=== PATIENT | male | born 1955 | race Caucasian/White ===

== ENCOUNTER 2016-11-02 10:27 | Inpatient (IN) | payer OTHER ==
[~2016-11-02] VITALS: Ht 180.3 cm; Wt 108.9 kg
[2016-11-02] MEDS: IPRATROPIUM/ALBUTEROL 0.5-3(2.5)MG/3ML NEB HHN SCH ×2 (04:00)
[2016-11-02 12:05] LABS: HEMATOCRIT. 28.5 % (42.0-52.0); HEMOGLOBIN. 9.5 g/dL (14.0-18.0); MEAN CORPUSCULAR HEMOGLOBIN 28.7 pg (28.0-32.0); MEAN CORPUSCULAR VOLUME 86.4 fL (80.0-94.0); MEAN PLATELET VOLUME 9.5 fl (7.4-10.4); PLATELET 206 x1000/uL (130-400)
[2016-11-02 12:14] LABS: INR 1.3; PROTHROMBIN TIME 13.8 sec (9.4-11.6)
[2016-11-02 12:22] LABS: CARBON DIOXIDE 19 mEq/L (21-32); CHLORIDE 104 mEq/L (98-107); TROPONIN I < 0.02 ng/mL (0.00-0.04)
[2016-11-02 12:55] LABS: PLATELET ESTIMATE NORMAL
[2016-11-02] MEDS ORDERED: AZITHROMYCIN 500 MG in DEXT 5% WATER 250 ML IV SCH (13:30)
[2016-11-02] MEDS ORDERED: SODIUM BICARBONATE 8.4% 1 MEQ/ML 50ML SYR IV ONE (13:30)
[2016-11-02] MEDS ORDERED: CEFTRIAXONE 1 G PREMIX 50 ML IV ONE (13:30)
[2016-11-02] MEDS ORDERED: INSULIN REGULAR (HUMULIN R) 300UNITS/3ML IV ONE (13:30)
[2016-11-02] MEDS ORDERED: DEXTROSE 50% WATER 50ML SYRINGE IV ONE (13:30)
[2016-11-02 15:00] VITALS: BP 155/73
[2016-11-02] MEDS ORDERED: IPRATROPIUM/ALBUTEROL 0.5-3(2.5)MG/3ML NEB INH PRN (15:15)
[2016-11-02] MEDS ORDERED: ONDANSETRON HCL 4MG/2ML VIAL IV PRN (15:15)
[2016-11-02] MEDS ORDERED: MAGNESIUM/ALUMINUM HYDROXIDE/SIMETHICONE 30ML UDC PO PRN (15:15)
[2016-11-02] MEDS ORDERED: DIPHENHYDRAMINE 50MG/ML VIAL IV PRN (15:15)
[2016-11-02] MEDS ORDERED: GUAIFENESIN 200MG/10ML SUGAR FREE UDC PO PRN (15:15)
[2016-11-02] MEDS ORDERED: ENOXAPARIN 40MG/0.4ML SYR SUBCUT SCH (16:00)
[2016-11-02] MEDS ORDERED: FUROSEMIDE 100MG/10ML VIAL IVP NR (16:48)
[2016-11-02] MEDS ORDERED: LIDOCAINE HCL 1% 20ML VIAL (Pyxis) INJ ONE (17:16)
[2016-11-02] MEDS ORDERED: SODIUM BICARBONATE 4% (2.4MEQ) 5ML VIAL IV ONE (17:16)
[2016-11-02] MEDS ORDERED: FURO40TA5 PO (18:40)
[2016-11-02] MEDS ORDERED: CLON0.1T14 PO (18:40)
[2016-11-02] MEDS ORDERED: LABE100T PO (18:40)
[2016-11-02] MEDS ORDERED: AMLO10TA4 PO (18:40)
[2016-11-02] MEDS ORDERED: PNEUMOCOCCAL 23-VAL P-SAC VAC 0.5 ML IM ONE (19:15)
[2016-11-02 20:00] VITALS: BP 153/86
[2016-11-02] MEDS ORDERED: HEPARIN SODIUM 1,000 UNIT/1ML VIAL IV SCH (20:00)
[2016-11-02 20:09] LABS: HEPATITIS B SURFACE AB 5.1 mIU/mL
[2016-11-02 20:20] LABS: HEPATITIS B SURFACE ANTIGEN NEGATIVE
[2016-11-02 20:48] LABS: HEPATITIS B CORE AB IGM NEGATIVE
[2016-11-02 23:57] VITALS: BP 154/80
[2016-11-03] MEDS: AMLODIPINE 10MG TABLET PO SCH ×2 (00:09→22:41)
[2016-11-03] MEDS: NITROGLYCERIN OINT 1GM/INCH UDPKT TD SCH ×4 (00:10→22:41)
[2016-11-03] MEDS: SODIUM CHLORIDE 0.9% INJ 3ML FLUSH IVF SCH ×4 (00:11→22:41)
[2016-11-03 04:00] VITALS: BP 145/65
[2016-11-03 06:49] LABS: HEMATOCRIT. 25.6 % (42.0-52.0); HEMOGLOBIN. 8.8 g/dL (14.0-18.0); MEAN CORPUSCULAR HEMOGLOBIN 29.1 pg (28.0-32.0); MEAN CORPUSCULAR VOLUME 84.5 fL (80.0-94.0); MEAN PLATELET VOLUME 9.7 fl (7.4-10.4); PLATELET 187 x1000/uL (130-400); RED BLOOD CELL COUNT 3.03 mill/uL (4.7-6.1); RED CELL DISTRIBUTION WIDTH 14.2 % (11.6-14.6)
[2016-11-03] MEDS: IPRATROPIUM/ALBUTEROL 0.5-3(2.5)MG/3ML NEB HHN SCH ×4 (08:16→20:22)
[2016-11-03 08:58] VITALS: BP 146/68
[2016-11-03] MEDS: FUROSEMIDE 80MG TABLET PO SCH ×2 (10:32→17:15)
[2016-11-03] MEDS: SEVELAMER CARBONATE 800 MG TABLET PO SCH ×2 (12:37→17:40)
[2016-11-03 12:44] VITALS: BP 136/71
[2016-11-03 13:20] LABS: PLATELET ESTIMATE NORMAL
[2016-11-03 16:04] VITALS: BP 161/87
[2016-11-03 20:00] VITALS: BP 170/76
[2016-11-04] VITALS (12 sets, daily range): BP systolic 124–169; BP diastolic 60–85
[2016-11-04] MEDS: IPRATROPIUM/ALBUTEROL 0.5-3(2.5)MG/3ML NEB HHN SCH ×3 (00:18→09:25)
[2016-11-04] MEDS: SODIUM CHLORIDE 0.9% INJ 3ML FLUSH IVF SCH ×3 (05:50→20:53)
[2016-11-04] MEDS: NITROGLYCERIN OINT 1GM/INCH UDPKT TD SCH (05:50)
[2016-11-04] MEDS: FUROSEMIDE 80MG TABLET PO SCH ×2 (06:30→16:43)
[2016-11-04 07:40] LABS: HEMATOCRIT. 26.3 % (42.0-52.0); MEAN CORPUSCULAR HEMOGLOBIN 28.8 pg (28.0-32.0); MEAN CORPUSCULAR VOLUME 84.2 fL (80.0-94.0); PLATELET 194 x1000/uL (130-400); RED BLOOD CELL COUNT 3.12 mill/uL (4.7-6.1); RED CELL DISTRIBUTION WIDTH 13.9 % (11.6-14.6)
[2016-11-04 07:58] LABS: CARBON DIOXIDE 26 mEq/L (21-32); CHLORIDE 101 mEq/L (98-107); PHOSPHORUS 7.1 mg/dL (2.5-4.9)
[2016-11-04] MEDS: SEVELAMER CARBONATE 800 MG TABLET PO SCH ×3 (08:12→16:44)
[2016-11-04] MEDS: LABETALOL HCL 300MG TABLET PO SCH ×2 (10:40→20:20)
[2016-11-04] MEDS ORDERED: LIDOCAINE HCL 1% 20ML VIAL (Pyxis) INJ ONE (13:01)
[2016-11-04] MEDS ORDERED: SODIUM BICARBONATE 4% (2.4MEQ) 5ML VIAL IV ONE (13:02)
[2016-11-04] MEDS ORDERED: CEFAZOLIN 1000MG PREMIX 50 ML IV SCH (13:15)
[2016-11-04] MEDS ORDERED: CEFAZOLIN 1000MG PREMIX 50 ML IV ONE (13:17)
[2016-11-04] MEDS ORDERED: FENTANYL CITRATE/PF 50MCG/ML 2ML VIAL ONE (13:55)
[2016-11-04] MEDS ORDERED: FENTANYL CITRATE/PF 50MCG/ML 2ML VIAL IV ONE (14:00)
[2016-11-04 15:22] LABS: CLARITY URINE CLEAR (CLEAR); COLOR URINE YELLOW (YELLOW); GLUCOSE URINE TRACE (NEGATIVE); KETONES URINE NEGATIVE (NEGATIVE); LEUKOCYTE ESTERASE URINE NEGATIVE (NEGATIVE); NITRITE URINE NEGATIVE (NEGATIVE); OCCULT BLOOD URINE 1+ (NEGATIVE); PROTEIN URINE 3+ (NEGATIVE); SPECIFIC GRAVITY URINE 1.014 (1.005-1.030); UROBILINOGEN URINE 0.2 E.U./dL (0.2-1.0)
[2016-11-04] MEDS: AMLODIPINE 10MG TABLET PO SCH (20:20)
[2016-11-04] MEDS: EPOETIN ALFA 4000UNITS/ML VIAL SUBCUT SCH (20:53)
[2016-11-04 22:56] LABS: PLATELET ESTIMATE NORMAL
[2016-11-05] VITALS: BP 144/62
[2016-11-05 04:00] VITALS: BP 143/60
[2016-11-05] MEDS: FUROSEMIDE 80MG TABLET PO SCH ×2 (06:19→16:43)
[2016-11-05] MEDS: SODIUM CHLORIDE 0.9% INJ 3ML FLUSH IVF SCH ×3 (06:20→22:10)
[2016-11-05 08:00] VITALS: BP 147/67
[2016-11-05] MEDS: SEVELAMER CARBONATE 800 MG TABLET PO SCH ×3 (08:24→16:44)
[2016-11-05] MEDS: LABETALOL HCL 300MG TABLET PO SCH ×2 (08:41→22:10)
[2016-11-05 09:12] LABS: IMMUNOGLOBULIN A 229 mg/dL (61-437); IMMUNOGLOBULIN G 675 mg/dL (700-1600); IMMUNOGLOBULIN M 127 mg/dL (20-172)
[2016-11-05 11:04] LABS: HEMOGLOBIN. 8.6 g/dL (14.0-18.0); MEAN CORPUSCULAR HEMOGLOBIN 28.8 pg (28.0-32.0); MEAN CORPUSCULAR VOLUME 83.9 fL (80.0-94.0); PLATELET 209 x1000/uL (130-400); RED BLOOD CELL COUNT 2.99 mill/uL (4.7-6.1); RED CELL DISTRIBUTION WIDTH 13.6 % (11.6-14.6)
[2016-11-05 11:42] LABS: PHOSPHORUS 7.4 mg/dL (2.5-4.9)
[2016-11-05 12:01] VITALS: BP 136/65
[2016-11-05 12:58] LABS: PLATELET ESTIMATE NORMAL
[2016-11-05] MEDS ORDERED: HEPARIN SODIUM 1,000 UNIT/1ML VIAL IV SCH (13:45)
[2016-11-05 16:00] VITALS: BP 137/74
[2016-11-05 20:00] VITALS: BP 148/67
[2016-11-05] MEDS: AMLODIPINE 10MG TABLET PO SCH (22:07)
[2016-11-05] MEDS: ACETAMINOPHEN 325MG TABLET PO PRN (22:10)
[2016-11-06] VITALS: BP 147/70
[2016-11-06 04:00] VITALS: BP 160/64
[2016-11-06] MEDS: ACETAMINOPHEN 325MG TABLET PO PRN ×2 (05:00→21:00)
[2016-11-06] MEDS: SODIUM CHLORIDE 0.9% INJ 3ML FLUSH IVF SCH ×3 (06:44→21:00)
[2016-11-06] MEDS: FUROSEMIDE 80MG TABLET PO SCH ×2 (07:15→17:49)
[2016-11-06 07:21] LABS: HEMATOCRIT. 25.3 % (42.0-52.0); HEMOGLOBIN. 8.4 g/dL (14.0-18.0); MEAN CORPUSCULAR HEMOGLOBIN 28.4 pg (28.0-32.0); MEAN CORPUSCULAR VOLUME 85.3 fL (80.0-94.0); MEAN PLATELET VOLUME 8.9 fl (7.4-10.4); PLATELET 209 x1000/uL (130-400); RED BLOOD CELL COUNT 2.96 mill/uL (4.7-6.1); RED CELL DISTRIBUTION WIDTH 13.5 % (11.6-14.6)
[2016-11-06 08:00] VITALS: BP 141/63
[2016-11-06 08:09] LABS: PHOSPHORUS 5.6 mg/dL (2.5-4.9)
[2016-11-06] MEDS: SEVELAMER CARBONATE 800 MG TABLET PO SCH ×3 (08:37→17:09)
[2016-11-06 10:20] LABS: PLATELET ESTIMATE NORMAL
[2016-11-06 12:00] VITALS: BP 157/75
[2016-11-06] MEDS ORDERED: LOSARTAN POTASSIUM 50 MG TABLET PO SCH (12:00)
[2016-11-06] MEDS ORDERED: LEVOFLOXACIN 250MG TABLET PO ONE (12:00)
[2016-11-06] MEDS ORDERED: LEVOFLOXACIN 250MG TABLET PO NR (12:15)
[2016-11-06 16:13] VITALS: BP 156/70
[2016-11-06 20:00] VITALS: BP 153/71
[2016-11-06] MEDS: AMLODIPINE 10MG TABLET PO SCH (20:59)
[2016-11-06] MEDS: LABETALOL HCL 200MG TABLET PO SCH (21:00)
[2016-11-07] VITALS: BP 133/66
[2016-11-07 04:35] VITALS: BP 143/63
[2016-11-07 05:51] LABS: HEMATOCRIT. 25.4 % (42.0-52.0); HEMOGLOBIN. 8.6 g/dL (14.0-18.0); MEAN CORPUSCULAR HEMOGLOBIN 28.7 pg (28.0-32.0); MEAN CORPUSCULAR VOLUME 84.7 fL (80.0-94.0); MEAN PLATELET VOLUME 8.7 fl (7.4-10.4); PLATELET 231 x1000/uL (130-400); RED BLOOD CELL COUNT 2.99 mill/uL (4.7-6.1); RED CELL DISTRIBUTION WIDTH 13.3 % (11.6-14.6)
[2016-11-07 06:13] LABS: A/G RATIO 0.6 (0.7-1.7); ALBUMIN 1.7 g/dL (2.9-4.4); ALPHA-1-GLOBULIN 0.4 g/dL (0.0-0.4); ALPHA-2-GLOBULIN 0.9 g/dL (0.4-1.0); BETA GLOBULIN 0.7 g/dL (0.7-1.3); GAMMA GLOBULINS 0.9 g/dL (0.4-1.8); M-SPIKE Not Observed g/dL (Not Observed); TOTAL PROTEIN SERUM 4.7 g/dL (6.0-8.5)
[2016-11-07] MEDS: SODIUM CHLORIDE 0.9% INJ 3ML FLUSH IVF SCH ×3 (06:18→21:26)
[2016-11-07] MEDS: FUROSEMIDE 80MG TABLET PO SCH ×2 (06:18→17:09)
[2016-11-07 06:33] LABS: PHOSPHORUS 4.4 mg/dL (2.5-4.9)
[2016-11-07 07:42] VITALS: BP 153/68
[2016-11-07] MEDS: LABETALOL HCL 200MG TABLET PO SCH ×2 (08:24→22:22)
[2016-11-07] MEDS: SEVELAMER CARBONATE 800 MG TABLET PO SCH ×3 (08:24→17:09)
[2016-11-07] MEDS: LOSARTAN POTASSIUM 50 MG TABLET PO SCH (08:28)
[2016-11-07] MEDS: LEVOFLOXACIN 500MG TABLET PO SCH (10:35)
[2016-11-07 12:00] VITALS: BP 134/65
[2016-11-07] MEDS: SILDENAFIL CITRATE 20MG TABLET PO SCH ×2 (13:12→21:25)
[2016-11-07 13:43] LABS: PLATELET ESTIMATE NORMAL
[2016-11-07 15:12] LABS: ANA IFA Negative (.)
[2016-11-07 15:52] VITALS: BP 145/67
[2016-11-07 20:00] VITALS: BP 139/59
[2016-11-07] MEDS: AMLODIPINE 5MG TABLET PO SCH (21:25)
[2016-11-07] MEDS: EPOETIN ALFA 4000UNITS/ML VIAL SUBCUT SCH (21:26)
[2016-11-07] MEDS: ACETAMINOPHEN 325MG TABLET PO PRN (22:46)
[2016-11-08] VITALS: BP 148/76
[2016-11-08 04:00] VITALS: BP 150/65
[2016-11-08] MEDS: SILDENAFIL CITRATE 20MG TABLET PO SCH ×3 (05:41→22:00)
[2016-11-08] MEDS: SODIUM CHLORIDE 0.9% INJ 3ML FLUSH IVF SCH ×3 (05:42→22:15)
[2016-11-08] MEDS: FUROSEMIDE 80MG TABLET PO SCH ×2 (06:20→17:43)
[2016-11-08 07:04] LABS: HEMOGLOBIN. 9.3 g/dL (14.0-18.0); MEAN CORPUSCULAR HEMOGLOBIN 28.4 pg (28.0-32.0); MEAN CORPUSCULAR VOLUME 85.2 fL (80.0-94.0); MEAN PLATELET VOLUME 8.9 fl (7.4-10.4); PLATELET 288 x1000/uL (130-400); RED BLOOD CELL COUNT 3.29 mill/uL (4.7-6.1); RED CELL DISTRIBUTION WIDTH 13.2 % (11.6-14.6)
[2016-11-08 08:00] VITALS: BP 150/63
[2016-11-08 08:19] LABS: PHOSPHORUS 4.6 mg/dL (2.5-4.9)
[2016-11-08] MEDS: AMLODIPINE 5MG TABLET PO SCH ×2 (08:36→21:00)
[2016-11-08] MEDS: SEVELAMER CARBONATE 800 MG TABLET PO SCH ×3 (08:36→17:42)
[2016-11-08] MEDS: LOSARTAN POTASSIUM 50 MG TABLET PO SCH (08:37)
[2016-11-08] MEDS: LABETALOL HCL 200MG TABLET PO SCH ×2 (08:37→21:00)
[2016-11-08 12:00] VITALS: BP 143/61
[2016-11-08 12:00] LABS: ANTI-MYELOPEROXIDASE AB < 9.0 U/mL (0.0-9.0); ANTI-PROTEINASE 3 ABS < 3.5 U/mL (0.0-3.5); ATYPICAL P-ANCA <1:20 titer (Neg:<1:20); CYTOPLASMIC C-ANCA <1:20 titer (Neg:<1:20); PERINUCLEAR P-ANCA <1:20 titer (Neg:<1:20)
[2016-11-08] MEDS: HYDRALAZINE HCL 50MG TABLET PO SCH ×2 (12:48→21:00)
[2016-11-08 16:00] VITALS: BP 142/62
[2016-11-08 16:39] LABS: PLATELET ESTIMATE NORMAL
[2016-11-08] MEDS: CEFEPIME 1,000 MG in DEXTROSE 5% WATER 50 ML IV SCH (17:45)
[2016-11-08 20:00] VITALS: BP 174/64
[2016-11-09] VITALS (7 sets, daily range): BP systolic 126–156; BP diastolic 61–72
[2016-11-09] MEDS: ACETAMINOPHEN 325MG TABLET PO PRN ×2 (01:02→08:26)
[2016-11-09] MEDS: SILDENAFIL CITRATE 20MG TABLET PO SCH ×3 (05:32→22:25)
[2016-11-09] MEDS: SODIUM CHLORIDE 0.9% INJ 3ML FLUSH IVF SCH ×3 (05:33→22:26)
[2016-11-09] MEDS: FUROSEMIDE 80MG TABLET PO SCH ×2 (06:06→17:20)
[2016-11-09 07:45] LABS: HEMATOCRIT. 26.3 % (42.0-52.0); HEMOGLOBIN. 8.8 g/dL (14.0-18.0); MEAN CORPUSCULAR HEMOGLOBIN 28.5 pg (28.0-32.0); MEAN CORPUSCULAR VOLUME 84.7 fL (80.0-94.0); PLATELET 257 x1000/uL (130-400); RED CELL DISTRIBUTION WIDTH 13.5 % (11.6-14.6)
[2016-11-09 08:11] LABS: PHOSPHORUS 3.8 mg/dL (2.5-4.9)
[2016-11-09 08:22] LABS: GLOMERULAR BASEMENT MEMB AB 3 units (0-20)
[2016-11-09] MEDS: HYDRALAZINE HCL 50MG TABLET PO SCH ×2 (08:23→20:57)
[2016-11-09] MEDS: LOSARTAN POTASSIUM 50 MG TABLET PO SCH (08:23)
[2016-11-09] MEDS: LABETALOL HCL 200MG TABLET PO SCH ×2 (08:23→20:57)
[2016-11-09] MEDS: SEVELAMER CARBONATE 800 MG TABLET PO SCH ×3 (08:23→17:20)
[2016-11-09] MEDS: AMLODIPINE 5MG TABLET PO SCH ×2 (08:23→20:57)
[2016-11-09] MEDS: POLYETHYLENE GLYCOL 3350 (17GM) 1 DOSE PACK PO SCH (08:54)
[2016-11-09] MEDS ORDERED: VANCOMYCIN 1 G PREMIX 200 ML IV SCH (10:00)
[2016-11-09 10:02] LABS: INR 1.1; PARTIAL THROMBOPLASTIN TIME 30.6 sec (23.4-31.0); PROTHROMBIN TIME 11.2 sec (9.4-11.6)
[2016-11-09] MEDS: LEVOFLOXACIN 500MG TABLET PO SCH (12:09)
[2016-11-09] MEDS ORDERED: SODIUM BICARBONATE 4% (2.4MEQ) 5ML VIAL IV ONE (13:34)
[2016-11-09] MEDS ORDERED: DIATR MEGLU/DIATRIZOATE SOLN 30ML PO SCH (15:45)
[2016-11-09 16:23] LABS: PLATELET ESTIMATE NORMAL
[2016-11-09] MEDS ORDERED: DIATR MEGLU/DIATRIZOATE SOLN 30ML PO NR ×2 (16:30→17:15)
[2016-11-09] MEDS: CEFEPIME 1,000 MG in DEXTROSE 5% WATER 50 ML IV SCH (17:20)
[2016-11-09] MEDS: EPOETIN ALFA 4000UNITS/ML VIAL SUBCUT SCH (20:57)
[2016-11-09] MEDS: DOXYCYCLINE HYCLATE 100MG CAPSULE PO SCH (20:59)
[2016-11-10] VITALS: BP 149/86
[2016-11-10 04:00] VITALS: BP 145/69
[2016-11-10] MEDS: SODIUM CHLORIDE 0.9% INJ 3ML FLUSH IVF SCH ×2 (06:57→13:33)
[2016-11-10] MEDS: SILDENAFIL CITRATE 20MG TABLET PO SCH ×2 (06:57→13:33)
[2016-11-10 07:06] LABS: HEMATOCRIT. 23.5 % (42.0-52.0); MEAN CORPUSCULAR HEMOGLOBIN 28.7 pg (28.0-32.0); MEAN CORPUSCULAR VOLUME 84.4 fL (80.0-94.0); MEAN PLATELET VOLUME 8.9 fl (7.4-10.4); PLATELET 260 x1000/uL (130-400); RED BLOOD CELL COUNT 2.79 mill/uL (4.7-6.1); RED CELL DISTRIBUTION WIDTH 13.6 % (11.6-14.6)
[2016-11-10 07:38] VITALS: BP 141/64
[2016-11-10] MEDS: SEVELAMER CARBONATE 800 MG TABLET PO SCH ×2 (08:29→13:33)
[2016-11-10] MEDS: LOSARTAN POTASSIUM 50 MG TABLET PO SCH (08:29)
[2016-11-10] MEDS: FUROSEMIDE 80MG TABLET PO SCH (08:29)
[2016-11-10] MEDS: DOXYCYCLINE HYCLATE 100MG CAPSULE PO SCH (08:30)
[2016-11-10] MEDS: AMLODIPINE 5MG TABLET PO SCH (08:30)
[2016-11-10] MEDS: POLYETHYLENE GLYCOL 3350 (17GM) 1 DOSE PACK PO SCH ×2 (08:30→08:34)
[2016-11-10] MEDS: HYDRALAZINE HCL 50MG TABLET PO SCH (08:30)
[2016-11-10] MEDS: LABETALOL HCL 200MG TABLET PO SCH (08:30)
[2016-11-10 09:13] LABS: PHOSPHORUS 3.9 mg/dL (2.5-4.9)
[2016-11-10] MEDS ORDERED: AMLODIPINE 10MG TABLET PO SCH (09:30)
[2016-11-10 12:00] VITALS: BP 138/63
[2016-11-10 14:30] VITALS: BP 138/63
[2016-11-10 16:36] LABS: PLATELET ESTIMATE NORMAL
[2016-11-10 17:12] LABS: QFT MITOGEN VALUE 0.17 IU/mL (.); QFT TB AG MINUS NIL VALUE <0.00 IU/mL (.); QFT TB AG VALUE 0.12 IU/mL (.); QFT TB GOLD Indeterminate (Negative)
[2016-11-10] MEDS ORDERED: EPOETIN ALFA 4000UNITS/ML VIAL SUBCUT SCH (21:00)
[2016-11-11] MEDS ORDERED: FUROSEMIDE 80MG TABLET PO SCH (09:00)
== END 2016-11-10 16:00 | disposition home or self-care (01) | DRG 720 ==
LOC: ER 12:41 → 8WST 14:02 → EDBEDREQ 14:05 → ENRESERV 14:09
PROVIDERS: ADMIT Internal Medicine; ATTEND Internal Medicine
PROC: 5A1D60Z (ICD-10-PCS; principal; 2016-11-02)
PROC: 02HV33Z Insertion of Infusion Device into Superior Vena Cava, Percutaneous Approach (ICD-10-PCS; 2016-11-02)
PROC: B548ZZA Ultrasonography of Superior Vena Cava, Guidance (ICD-10-PCS; 2016-11-02)
PROC: 02HV33Z Insertion of Infusion Device into Superior Vena Cava, Percutaneous Approach (ICD-10-PCS; 2016-11-04)
PROC: B5181ZA Fluoroscopy of Superior Vena Cava using Low Osmolar Contrast, Guidance (ICD-10-PCS; 2016-11-04)
PROC: 0W993ZZ Drainage of Right Pleural Cavity, Percutaneous Approach (ICD-10-PCS; 2016-11-09)
DX: A41.9 Sepsis, unspecified organism (principal); J96.00 Acute respiratory failure, unspecified whether with hypoxia or hypercapnia; I13.2 Hypertensive heart and chronic kidney disease with heart failure and with stage 5 chronic kidney disease, or end stage renal disease; N17.9 Acute kidney failure, unspecified; E43 Unspecified severe protein-calorie malnutrition; E87.2 Acidosis; J90 Pleural effusion, not elsewhere classified; N18.6 End stage renal disease; I27.2 Other secondary pulmonary hypertension; E87.5 Hyperkalemia; I50.9 Heart failure, unspecified; N04.9 Nephrotic syndrome with unspecified morphologic changes; D63.1 Anemia in chronic kidney disease; T46.5X5A Adverse effect of other antihypertensive drugs, initial encounter; M71.22 Synovial cyst of popliteal space [Baker], left knee; R73.03 Prediabetes; E66.9 Obesity, unspecified; R00.1 Bradycardia, unspecified; E88.09 Other disorders of plasma-protein metabolism, not elsewhere classified; Z83.3 Family history of diabetes mellitus; E83.39 Other disorders of phosphorus metabolism; R59.0 Localized enlarged lymph nodes; Z87.440 Personal history of urinary (tract) infections; Z99.2 Dependence on renal dialysis; Z68.33 Body mass index [BMI] 33.0-33.9, adult; Z82.49 Family history of ischemic heart disease and other diseases of the circulatory system; Y92.89 Other specified places as the place of occurrence of the external cause
CPT/HCPCS: 32555; 36415; 36556; 36558; 36589; 71010; 71250; 74176; 76700; 76937; 77001; 78582; 80048; 80053; 80076; 81001; 82150; 82330; 82550; 82570; 82784; 82945; 82962; 83036; 83520; 83540; 83550; 83605; 83615; 83690; 83735; 83880; 84100; 84155; 84156; 84157; 84165; 84443; 84484; 85025; 85610; 85651; 85730; 86140; 86256; 86334; 86480; 86635; 86703; 86705; 86706; 86803; 86850; 86900; 87040; 87070; 87086; 87205; 87340; 87899; 88108; 88312; 89050; 90732; 93005; 93306; 93970; 94640; 94664; 96374; 96375; 99291; A9558; C1750; C1752; J0456; J0690; J0692; J0696; J0885; J1642; J1644; J1650; J1815; J2405; J3010; J3370; J3490; J7030; J7050; J7060; J7620; Q9963

== ENCOUNTER 2016-11-24 15:52 | Inpatient (IN) | payer OTHER ==
[~2016-11-24] VITALS: Ht 180.3 cm; Wt 95.3 kg
[~2016-11-24 15:52] MED LIST: AMLO10TA4 PO; CLON0.1T14 PO; FURO40TA5 PO; LABE100T PO
[2016-11-24 18:52] LABS: HEMATOCRIT. 21.3 % (42.0-52.0); HEMOGLOBIN. 7.3 g/dL (14.0-18.0); MEAN CORPUSCULAR HEMOGLOBIN 28.5 pg (28.0-32.0); MEAN CORPUSCULAR VOLUME 83.8 fL (80.0-94.0); RED BLOOD CELL COUNT 2.55 mill/uL (4.7-6.1); RED CELL DISTRIBUTION WIDTH 13.6 % (11.6-14.6)
[2016-11-24 18:59] LABS: INR 1.1; PARTIAL THROMBOPLASTIN TIME 29.9 sec (23.4-31.0); PROTHROMBIN TIME 11.1 sec (9.4-11.6)
[2016-11-24] MEDS ORDERED: IPRATROPIUM/ALBUTEROL 0.5-3(2.5)MG/3ML NEB INH PRN (21:00)
[2016-11-24] MEDS ORDERED: ONDANSETRON HCL 4MG/2ML VIAL IV PRN (21:00)
[2016-11-24] MEDS ORDERED: MAGNESIUM/ALUMINUM HYDROXIDE/SIMETHICONE 30ML UDC PO PRN (21:00)
[2016-11-24] MEDS ORDERED: ACETAMINOPHEN 325MG TABLET PO PRN (21:00)
[2016-11-24 21:50] LABS: CLARITY URINE CLEAR (CLEAR); COLOR URINE YELLOW (YELLOW); GLUCOSE URINE 1+ (NEGATIVE); KETONES URINE NEGATIVE (NEGATIVE); LEUKOCYTE ESTERASE URINE NEGATIVE (NEGATIVE); NITRITE URINE NEGATIVE (NEGATIVE); OCCULT BLOOD URINE NEGATIVE (NEGATIVE); PH URINE 8.5 (4.5-8.0); PROTEIN URINE 3+ (NEGATIVE); SPECIFIC GRAVITY URINE 1.012 (1.005-1.030); UROBILINOGEN URINE 0.2 E.U./dL (0.2-1.0)
[2016-11-24 22:01] LABS: *AMPHETAMINES SCREEN URINE NEGATIVE (NEGATIVE); *BARBITURATES SCREEN URINE NEGATIVE (NEGATIVE); *BENZODIAZEPINES SCREEN URINE NEGATIVE (NEGATIVE); *COCAINE SCREEN URINE NEGATIVE (NEGATIVE); CANNABINOID URINE SCREEN NEGATIVE (NEGATIVE); METHADONE URINE SCREEN NEGATIVE (NEGATIVE); OPIATES URINE SCREEN NEGATIVE (NEGATIVE); PHENCYCLIDINE URINE SCREEN NEGATIVE (NEGATIVE)
[2016-11-24 22:55] VITALS: BP 161/74
[2016-11-25] VITALS (10 sets, daily range): BP systolic 143–171; BP diastolic 67–78
[2016-11-25] MEDS: FUROSEMIDE 40MG/4ML VIAL IVP SCH ×2 (00:52→08:59)
[2016-11-25 02:00] LABS: CARBON DIOXIDE 32 mEq/L (21-32); CHLORIDE 98 mEq/L (98-107); CREATINE KINASE 163 IU/L (39-308); CREATINE KINASE MB FRACTION 4.4 ng/mL (0.5-3.6); TOTAL IRON BINDING CAPACITY 211 ug/dL (250-450); TROPONIN I < 0.02 ng/mL (0.00-0.04)
[2016-11-25] MEDS ORDERED: EPOETIN ALFA 4000UNITS/ML VIAL SUBCUT SCH (02:00)
[2016-11-25 05:36] LABS: BASOPHILS % 1.2 % (0.0-2.0); EOSINOPHILS % 3.2 % (0.0-5.0); HEMATOCRIT. 22.7 % (42.0-52.0); HEMOGLOBIN. 7.8 g/dL (14.0-18.0); MEAN CORPUSCULAR HEMOGLOBIN 27.7 pg (28.0-32.0); MEAN CORPUSCULAR VOLUME 80.5 fL (80.0-94.0); MEAN PLATELET VOLUME 8.8 fl (7.4-10.4); MONOCYTES % 8.8 % (2.0-8.0); NEUTROPHILS % 71.8 % (40.0-76.0); PLATELET 297 x1000/uL (130-400); RED BLOOD CELL COUNT 2.82 mill/uL (4.7-6.1)
[2016-11-25] MEDS ORDERED: AMLO10TA4 PO (06:42)
[2016-11-25] MEDS ORDERED: FURO-151 PO ×2 (06:52)
[2016-11-25] MEDS ORDERED: AMLO2.5T2 PO (06:52)
[2016-11-25] MEDS ORDERED: CLON0.1T14 PO (06:52)
[2016-11-25] MEDS: CLONIDINE 0.1MG TABLET PO SCH ×2 (09:00→19:51)
[2016-11-25] MEDS: AMLODIPINE 10MG TABLET PO SCH (09:00)
[2016-11-25 09:40] LABS: CARBON DIOXIDE 31 mEq/L (21-32); CHLORIDE 99 mEq/L (98-107); CREATINE KINASE 127 IU/L (39-308); HDL CHOLESTEROL 48 mg/dL (40-59); LDL CHOLESTEROL 58 mg/dL (5-100)
[2016-11-25 09:42] LABS: CREATINE KINASE MB FRACTION 3.6 ng/mL (0.5-3.6); TROPONIN I < 0.02 ng/mL (0.00-0.04)
[2016-11-26 04:00] VITALS: BP 158/73
[2016-11-26 06:22] LABS: EOSINOPHILS % 2.6 % (0.0-5.0); HEMATOCRIT 23.6 % (42.0-52.0); HEMATOCRIT. 23.6 % (42.0-52.0); HEMOGLOBIN 8.2 g/dL (14.0-18.0); HEMOGLOBIN. 8.2 g/dL (14.0-18.0); LYMPHOCYTES % 15.5 % (20.0-50.0); MEAN CORPUSCULAR HEMOGLOBIN 28.1 pg (28.0-32.0); MEAN PLATELET VOLUME 8.9 fl (7.4-10.4); MONOCYTES % 9.5 % (2.0-8.0); NEUTROPHILS % 71.4 % (40.0-76.0); PLATELET 279 x1000/uL (130-400); RED BLOOD CELL COUNT 2.91 mill/uL (4.7-6.1); RED CELL DISTRIBUTION WIDTH 15.3 % (11.6-14.6)
[2016-11-26 08:00] VITALS: BP_SYST 154; BP_SYST 168; BP_DIAS 68; BP_DIAS 73
[2016-11-26] MEDS: FUROSEMIDE 40MG/4ML VIAL IVP SCH (08:39)
[2016-11-26] MEDS: CLONIDINE 0.1MG TABLET PO SCH ×2 (08:40→20:18)
[2016-11-26] MEDS: AMLODIPINE 10MG TABLET PO SCH (08:40)
[2016-11-26 12:00] VITALS: BP 154/73
[2016-11-26 16:00] VITALS: BP 167/77
[2016-11-26] MEDS: CLONIDINE 0.1MG TABLET PO PRN (17:49)
[2016-11-26 19:51] VITALS: BP 157/78
[2016-11-26] MEDS ORDERED: EPOETIN ALFA 4000UNITS/ML VIAL SUBCUT NR (23:00)
[2016-11-27] VITALS: BP 154/71
[2016-11-27 04:00] VITALS: BP 149/69
[2016-11-27 07:00] LABS: EOSINOPHILS % 2.1 % (0.0-5.0); HEMATOCRIT 25.5 % (42.0-52.0); HEMATOCRIT. 25.5 % (42.0-52.0); HEMOGLOBIN 8.9 g/dL (14.0-18.0); HEMOGLOBIN. 8.9 g/dL (14.0-18.0); LYMPHOCYTES % 13.2 % (20.0-50.0); MEAN CORPUSCULAR HEMOGLOBIN 28.4 pg (28.0-32.0); MEAN CORPUSCULAR VOLUME 81.3 fL (80.0-94.0); MEAN PLATELET VOLUME 8.6 fl (7.4-10.4); MONOCYTES % 6.9 % (2.0-8.0); NEUTROPHILS % 76.8 % (40.0-76.0); PLATELET 283 x1000/uL (130-400); RED BLOOD CELL COUNT 3.14 mill/uL (4.7-6.1); RED CELL DISTRIBUTION WIDTH 15.1 % (11.6-14.6)
[2016-11-27 07:02] LABS: CARBON DIOXIDE 28 mEq/L (21-32); CHLORIDE 104 mEq/L (98-107)
[2016-11-27 08:00] VITALS: BP 176/77
[2016-11-27] MEDS: AMLODIPINE 10MG TABLET PO SCH (09:11)
[2016-11-27] MEDS: CLONIDINE 0.1MG TABLET PO SCH ×2 (09:11→20:14)
[2016-11-27] MEDS: FUROSEMIDE 40MG/4ML VIAL IVP SCH (09:12)
[2016-11-27 12:00] VITALS: BP 155/74
[2016-11-27 16:00] VITALS: BP 159/77
[2016-11-27 20:00] VITALS: BP 168/71
[2016-11-28] VITALS: BP 151/73
[2016-11-28 04:00] VITALS: BP 157/68
[2016-11-28 06:46] LABS: BASOPHILS % 1.3 % (0.0-2.0); EOSINOPHILS % 2.6 % (0.0-5.0); HEMATOCRIT. 27.7 % (42.0-52.0); HEMOGLOBIN. 9.5 g/dL (14.0-18.0); LYMPHOCYTES % 14.2 % (20.0-50.0); MEAN CORPUSCULAR VOLUME 81.8 fL (80.0-94.0); MEAN PLATELET VOLUME 8.4 fl (7.4-10.4); MONOCYTES % 6.7 % (2.0-8.0); NEUTROPHILS % 75.2 % (40.0-76.0); PLATELET 286 x1000/uL (130-400); RED BLOOD CELL COUNT 3.39 mill/uL (4.7-6.1); RED CELL DISTRIBUTION WIDTH 15.2 % (11.6-14.6)
[2016-11-28 08:01] VITALS: BP 172/86
[2016-11-28] MEDS: FUROSEMIDE 40MG/4ML VIAL IVP SCH (08:48)
[2016-11-28] MEDS: AMLODIPINE 10MG TABLET PO SCH (08:49)
[2016-11-28] MEDS: CLONIDINE 0.1MG TABLET PO SCH (08:49)
[2016-11-28 11:59] VITALS: BP 177/85
[2016-11-28 14:11] VITALS: BP 177/85
[2016-11-28] MEDS: CLONIDINE 0.1MG TABLET PO PRN (14:39)
[2016-11-29 13:12] LABS: A/G RATIO 0.8 (0.7-1.7); ALBUMIN 2.3 g/dL (2.9-4.4); ALPHA-1-GLOBULIN 0.3 g/dL (0.0-0.4); ALPHA-2-GLOBULIN 0.9 g/dL (0.4-1.0); BETA GLOBULIN 0.7 g/dL (0.7-1.3); GLOBULIN TOTAL 2.9 g/dL (2.2-3.9); M-SPIKE Not Observed g/dL (Not Observed); TOTAL PROTEIN SERUM 5.2 g/dL (6.0-8.5)
== END 2016-11-28 14:50 | disposition home or self-care (01) | DRG 663 ==
LOC: ER 16:55 → EDBEDREQTM 19:15 → EDBEDREQ 19:15 → ENRESERV 21:38 → 6WST 22:58
PROVIDERS: ADMIT Internal Medicine; ATTEND Internal Medicine
PROC: 30233N1 Transfusion of Nonautologous Red Blood Cells into Peripheral Vein, Percutaneous Approach (ICD-10-PCS; principal; 2016-11-24)
DX: D64.9 Anemia, unspecified (principal); I13.2 Hypertensive heart and chronic kidney disease with heart failure and with stage 5 chronic kidney disease, or end stage renal disease; N18.6 End stage renal disease; R18.8 Other ascites; E11.22 Type 2 diabetes mellitus with diabetic chronic kidney disease; E88.09 Other disorders of plasma-protein metabolism, not elsewhere classified; E11.65 Type 2 diabetes mellitus with hyperglycemia; B35.1 Tinea unguium; D72.829 Elevated white blood cell count, unspecified; I50.9 Heart failure, unspecified; N40.0 Benign prostatic hyperplasia without lower urinary tract symptoms; L08.9 Local infection of the skin and subcutaneous tissue, unspecified; M71.20 Synovial cyst of popliteal space [Baker], unspecified knee; N39.0 Urinary tract infection, site not specified; Z79.899 Other long term (current) drug therapy; Z99.2 Dependence on renal dialysis
CPT/HCPCS: 36415; 71010; 76770; 80048; 80053; 80061; 80305; 81001; 82270; 82550; 82553; 82962; 83540; 83550; 83735; 84153; 84155; 84165; 84484; 85025; 85027; 85044; 85610; 85730; 86850; 86900; 86920; 87040; 93005; 93306; 93970; 99285; J0885; J1940; J7050; P9016

== ENCOUNTER 2016-12-08 20:44 | Inpatient (IN) | payer OTHER ==
[~2016-12-08] VITALS: Ht 180.3 cm; Wt 93.0 kg
[~2016-12-08 20:44] MED LIST changes: +AMLO2.5T2 PO; +FURO-151 PO
[2016-12-08 23:57] LABS: BASOPHILS % 0.8 % (0.0-2.0); EOSINOPHILS % 3.2 % (0.0-5.0); HEMATOCRIT. 25.6 % (42.0-52.0); HEMOGLOBIN. 8.9 g/dL (14.0-18.0); LYMPHOCYTES % 12.8 % (20.0-50.0); MEAN CORPUSCULAR HEMOGLOBIN 28.8 pg (28.0-32.0); MEAN PLATELET VOLUME 9.3 fl (7.4-10.4); MONOCYTES % 6.7 % (2.0-8.0); NEUTROPHILS % 76.5 % (40.0-76.0); PLATELET 145 x1000/uL (130-400); RED BLOOD CELL COUNT 3.08 mill/uL (4.7-6.1); RED CELL DISTRIBUTION WIDTH 16.4 % (11.6-14.6)
[2016-12-09 11:30] VITALS: BP 147/66
[2016-12-09 11:45] VITALS: BP 146/66
[2016-12-09] MEDS ORDERED: ROC50 PO (11:51)
[2016-12-09] MEDS ORDERED: LABE100T PO (11:51)
[2016-12-09] MEDS ORDERED: AMLO10TA80 PO (11:51)
[2016-12-09] MEDS ORDERED: SEVE800T8 PO (11:51)
[2016-12-09] MEDS ORDERED: HYDR-4134 PO (11:51)
[2016-12-09] MEDS ORDERED: GUAIFENESIN 200MG/10ML SUGAR FREE UDC PO PRN (12:15)
[2016-12-09] MEDS ORDERED: MAGNESIUM/ALUMINUM HYDROXIDE/SIMETHICONE 30ML UDC PO PRN (12:15)
[2016-12-09] MEDS ORDERED: ONDANSETRON HCL 4MG/2ML VIAL IV PRN (12:15)
[2016-12-09] MEDS ORDERED: ZOLPIDEM TARTRATE 5MG TABLET PO PRN (12:15)
[2016-12-09] MEDS ORDERED: IPRATROPIUM/ALBUTEROL 0.5-3(2.5)MG/3ML NEB INH PRN (12:15)
[2016-12-09] MEDS ORDERED: TRAMADOL 50MG TABLET PO PRN (12:15)
[2016-12-09] MEDS ORDERED: ACETAMINOPHEN 325MG TABLET PO PRN (12:15)
[2016-12-09] MEDS ORDERED: DIPHENHYDRAMINE 50MG/ML VIAL IV PRN (12:15)
[2016-12-09] MEDS ORDERED: CLONIDINE 0.1MG TABLET PO PRN (12:15)
[2016-12-09] MEDS ORDERED: AMLODIPINE 10MG TABLET PO SCH (12:15)
[2016-12-09] MEDS ORDERED: NA PHOS,M-B/NA PHOS,DI-BA ENEMA 118ML PR PRN (12:15)
[2016-12-09] MEDS ORDERED: DOCUSATE SODIUM 100MG CAPSULE PO PRN (12:15)
[2016-12-09] MEDS ORDERED: LORAZEPAM 2MG/ML CPJ IV PRN (12:15)
[2016-12-09] MEDS ORDERED: ASPIRIN 325MG EC TABLET PO SCH (12:15)
[2016-12-09] MEDS ORDERED: ENOXAPARIN 30MG/0.3ML SYR SUBCUT SCH (12:16)
[2016-12-09] MEDS: SEVELAMER CARBONATE 800 MG TABLET PO SCH ×2 (13:04→18:11)
[2016-12-09] MEDS ORDERED: HYDRALAZINE HCL 50MG TABLET PO SCH (14:00)
[2016-12-09 16:00] VITALS: BP 150/70
[2016-12-09 16:43] VITALS: BP 150/70
[2016-12-09 18:08] LABS: CREATINE KINASE 206 IU/L (39-308); TROPONIN I < 0.02 ng/mL (0.00-0.04)
[2016-12-09] MEDS ORDERED: ASCORBIC ACID 500 MG TABLET PO SCH (21:00)
[2016-12-10] MEDS ORDERED: FOLIC ACID/VITAMIN B COMP W-C TABLET PO SCH (09:00)
[2016-12-12] MEDS ORDERED: DESMOPRESSIN ACETATE IVPB 20 MCG in SODIUM CHLORIDE 0.9% 50 ML IV NR (09:00)
[2016-12-12 09:12] LABS: A/G RATIO 0.9 (0.7-1.7); ALBUMIN 2.6 g/dL (2.9-4.4); ALPHA-1-GLOBULIN 0.3 g/dL (0.0-0.4); ALPHA-2-GLOBULIN 0.8 g/dL (0.4-1.0); BETA GLOBULIN 0.6 g/dL (0.7-1.3); GLOBULIN TOTAL 2.8 g/dL (2.2-3.9); M-SPIKE Not Observed g/dL (Not Observed); TOTAL PROTEIN SERUM 5.4 g/dL (6.0-8.5)
== END 2016-12-09 19:00 | disposition home or self-care (01) | DRG 194 ==
LOC: ER 21:27 → 6WST 12-09 01:14 → ENRESERV 12-09 10:08
PROVIDERS: ADMIT Internal Medicine; ATTEND Internal Medicine
DX: I13.2 Hypertensive heart and chronic kidney disease with heart failure and with stage 5 chronic kidney disease, or end stage renal disease (principal); N18.6 End stage renal disease; E44.0 Moderate protein-calorie malnutrition; E83.51 Hypocalcemia; N18.5 Chronic kidney disease, stage 5; I50.9 Heart failure, unspecified; Z79.899 Other long term (current) drug therapy
CPT/HCPCS: 36415; 71010; 80048; 80061; 82550; 82553; 83036; 84155; 84165; 84484; 85025; 93005; 99285

== ENCOUNTER 2016-12-13 14:04 | Inpatient (IN) | payer OTHER ==
[~2016-12-13] VITALS: Ht 182.9 cm; Wt 90.3 kg
[~2016-12-13 14:04] MED LIST changes: -AMLO10TA4 PO; +AMLO10TA80 PO; -AMLO2.5T2 PO; -CLON0.1T14 PO; -FURO-151 PO; -FURO40TA5 PO; +HYDR-4134 PO; +ROC50 PO; +SEVE800T8 PO
[2016-12-13 17:43] LABS: BASOPHILS % 1.5 % (0.0-2.0); EOSINOPHILS % 3.2 % (0.0-5.0); HEMATOCRIT. 27.5 % (42.0-52.0); HEMOGLOBIN. 9.4 g/dL (14.0-18.0); MEAN CORPUSCULAR HEMOGLOBIN 28.6 pg (28.0-32.0); MEAN CORPUSCULAR VOLUME 83.6 fL (80.0-94.0); MEAN PLATELET VOLUME 8.9 fl (7.4-10.4); MONOCYTES % 4.5 % (2.0-8.0); NEUTROPHILS % 79.8 % (40.0-76.0); PLATELET 160 x1000/uL (130-400); RED BLOOD CELL COUNT 3.29 mill/uL (4.7-6.1)
[2016-12-13 17:55] LABS: PROTHROMBIN TIME 10.9 sec (9.4-11.6)
[2016-12-13 19:47] LABS: CLARITY URINE CLEAR (CLEAR); COLOR URINE YELLOW (YELLOW); GLUCOSE URINE 1+ (NEGATIVE); KETONES URINE NEGATIVE (NEGATIVE); LEUKOCYTE ESTERASE URINE NEGATIVE (NEGATIVE); NITRITE URINE NEGATIVE (NEGATIVE); OCCULT BLOOD URINE TRACE (NEGATIVE); PROTEIN URINE 4+ (NEGATIVE); SPECIFIC GRAVITY URINE 1.017 (1.005-1.030); UROBILINOGEN URINE 0.2 E.U./dL (0.2-1.0)
[2016-12-13 21:20] VITALS: BP 152/70
[2016-12-13] MEDS ORDERED: NEPVIT PO (22:15)
[2016-12-13] MEDS ORDERED: LOSA100T14 PO (22:17)
[2016-12-13] MEDS ORDERED: LABE100T PO (22:18)
[2016-12-13] MEDS ORDERED: FERR325T6 PO (22:22)
[2016-12-13] MEDS ORDERED: IPRATROPIUM/ALBUTEROL 0.5-3(2.5)MG/3ML NEB INH PRN (23:00)
[2016-12-13] MEDS ORDERED: HYDROCODONE/ACETAMINOPHEN 5/325MG TABLET PO PRN (23:00)
[2016-12-13] MEDS ORDERED: ACETAMINOPHEN 325MG TABLET PO PRN (23:00)
[2016-12-13] MEDS ORDERED: DEXTROSE 50% WATER 50ML SYRINGE IV PRN (23:00)
[2016-12-13] MEDS ORDERED: ONDANSETRON HCL 4MG/2ML VIAL IV PRN (23:00)
[2016-12-13] MEDS ORDERED: LORAZEPAM 2MG/ML CPJ IV PRN (23:00)
[2016-12-13] MEDS ORDERED: CLONIDINE 0.1MG TABLET PO PRN (23:00)
[2016-12-13] MEDS ORDERED: MORPHINE SULFATE 2 MG/ML CPJ (NOT FOR IM USE) IV PRN (23:00)
[2016-12-13] MEDS ORDERED: DIPHENHYDRAMINE 50MG/ML VIAL IV PRN (23:00)
[2016-12-14] VITALS (16 sets, daily range): BP systolic 129–176; BP diastolic 60–85
[2016-12-14] MEDS: DEXT 5%/0.45% NACL 1000ML 1,000 ML IV SCH ×3 (00:06→23:59)
[2016-12-14 01:29] LABS: CLARITY URINE CLEAR (CLEAR); COLOR URINE YELLOW (YELLOW); GLUCOSE URINE TRACE (NEGATIVE); KETONES URINE NEGATIVE (NEGATIVE); LEUKOCYTE ESTERASE URINE NEGATIVE (NEGATIVE); NITRITE URINE NEGATIVE (NEGATIVE); OCCULT BLOOD URINE 1+ (NEGATIVE); PH URINE 6.5 (4.5-8.0); PROTEIN URINE 4+ (NEGATIVE); SPECIFIC GRAVITY URINE 1.014 (1.005-1.030); UROBILINOGEN URINE 0.2 E.U./dL (0.2-1.0)
[2016-12-14] MEDS ORDERED: EPOETIN ALFA 4000UNITS/ML VIAL SUBCUT SCH (02:00)
[2016-12-14 06:16] LABS: BASOPHILS % 0.7 % (0.0-2.0); EOSINOPHILS % 4.6 % (0.0-5.0); HEMATOCRIT. 25.1 % (42.0-52.0); HEMOGLOBIN. 8.7 g/dL (14.0-18.0); LYMPHOCYTES % 16.9 % (20.0-50.0); MEAN CORPUSCULAR HEMOGLOBIN 28.9 pg (28.0-32.0); MONOCYTES % 6.1 % (2.0-8.0); NEUTROPHILS % 71.7 % (40.0-76.0); PLATELET 150 x1000/uL (130-400); RED BLOOD CELL COUNT 3.02 mill/uL (4.7-6.1); RED CELL DISTRIBUTION WIDTH 16.1 % (11.6-14.6)
[2016-12-14 06:40] LABS: CHLORIDE 114 mEq/L (98-107)
[2016-12-14] MEDS: BLOOD SUGAR DIAGNOSTIC STRIP TEST SCH ×4 (06:48→21:00)
[2016-12-14] MEDS: INSULIN LISPRO 100 UNITS/ML SUBCUT SCH ×4 (06:48→22:45)
[2016-12-14 06:54] LABS: CARBON DIOXIDE 23 mEq/L (21-32); CREATINE KINASE 462 IU/L (39-308); HDL CHOLESTEROL 41 mg/dL (40-59); LDL CHOLESTEROL 52 mg/dL (5-100); TROPONIN I < 0.02 ng/mL (0.00-0.04)
[2016-12-14] MEDS ORDERED: DESMOPRESSIN ACETATE IVPB 15 MCG in SODIUM CHLORIDE 0.9% 50 ML IV SCH (07:00)
[2016-12-14] MEDS ORDERED: FERROUS SULFATE 650 MG PO SCH (09:00)
[2016-12-14] MEDS ORDERED: CALCITRIOL 0.5 MCG PO SCH (09:00)
[2016-12-14] MEDS ORDERED: LOSARTAN POTASSIUM 100 MG TABLET PO SCH (09:00)
[2016-12-14] MEDS ORDERED: HYDRALAZINE HCL 50MG TABLET PO SCH (09:00)
[2016-12-14] MEDS: FOLIC ACID/VITAMIN B COMP W-C TABLET PO SCH (09:38)
[2016-12-14] MEDS: LOSARTAN POTASSIUM 100 MG TABLET PO SCH (09:38)
[2016-12-14] MEDS: FERROUS SULFATE 325MG TABLET PO SCH ×2 (09:38→17:03)
[2016-12-14] MEDS: HYDRALAZINE HCL 25MG TABLET PO SCH ×2 (09:38→21:43)
[2016-12-14] MEDS: LABETALOL HCL 100MG TABLET PO SCH (09:39)
[2016-12-14] MEDS: AMLODIPINE 10MG TABLET PO SCH (09:39)
[2016-12-14] MEDS: CALCITRIOL 0.25MCG CAPSULE PO SCH (09:39)
[2016-12-14] MEDS: SEVELAMER CARBONATE 800 MG TABLET PO SCH ×3 (09:39→17:03)
[2016-12-14] MEDS ORDERED: FENTANYL CITRATE/PF 50MCG/ML 2ML VIAL ONE (11:27)
[2016-12-14] MEDS ORDERED: SODIUM BICARBONATE 4% (2.4MEQ) 5ML VIAL IV ONE (11:33)
[2016-12-14] MEDS ORDERED: LIDOCAINE HCL 1% 20ML VIAL (Pyxis) INJ ONE (11:35)
[2016-12-14] MEDS ORDERED: FENTANYL CITRATE/PF 50MCG/ML 2ML VIAL IV ONE (12:15)
[2016-12-14 14:12] LABS: HEMATOCRIT 29.6 % (42.0-52.0); HEMOGLOBIN 9.8 g/dL (14.0-18.0)
[2016-12-14 14:29] LABS: CREATINE KINASE 372 IU/L (39-308); TROPONIN I < 0.02 ng/mL (0.00-0.04)
[2016-12-14] MEDS ORDERED: EPOETIN ALFA 4000UNITS/ML VIAL SUBCUT NR (19:45)
[2016-12-15] VITALS: BP 148/67
[2016-12-15 04:00] VITALS: BP 152/69
[2016-12-15] MEDS: BLOOD SUGAR DIAGNOSTIC STRIP TEST SCH ×4 (06:41→16:51)
[2016-12-15] MEDS: INSULIN LISPRO 100 UNITS/ML SUBCUT SCH ×3 (07:50→16:51)
[2016-12-15 08:00] VITALS: BP 142/77
[2016-12-15] MEDS: FOLIC ACID/VITAMIN B COMP W-C TABLET PO SCH (08:21)
[2016-12-15] MEDS: SEVELAMER CARBONATE 800 MG TABLET PO SCH ×3 (08:21→16:48)
[2016-12-15] MEDS: FERROUS SULFATE 325MG TABLET PO SCH ×2 (08:21→16:48)
[2016-12-15] MEDS: LABETALOL HCL 100MG TABLET PO SCH (08:22)
[2016-12-15] MEDS: CALCITRIOL 0.25MCG CAPSULE PO SCH (08:22)
[2016-12-15] MEDS: HYDRALAZINE HCL 25MG TABLET PO SCH (08:22)
[2016-12-15] MEDS: LOSARTAN POTASSIUM 100 MG TABLET PO SCH (08:22)
[2016-12-15] MEDS: AMLODIPINE 10MG TABLET PO SCH (08:23)
[2016-12-15 12:00] VITALS: BP 130/77
[2016-12-15 13:12] LABS: A/G RATIO 0.9 (0.7-1.7); ALBUMIN 2.8 g/dL (2.9-4.4); ALPHA-1-GLOBULIN 0.2 g/dL (0.0-0.4); ALPHA-2-GLOBULIN 0.9 g/dL (0.4-1.0); BETA GLOBULIN 0.8 g/dL (0.7-1.3); GAMMA GLOBULINS 1.2 g/dL (0.4-1.8); GLOBULIN TOTAL 3.2 g/dL (2.2-3.9); M-SPIKE Not Observed g/dL (Not Observed)
[2016-12-15] MEDS: DEXT 5%/0.45% NACL 1000ML 1,000 ML IV SCH (14:55)
[2016-12-15 15:09] LABS: ALBUMIN URINE 42.8 % (.); ALPHA-1-GLOBULIN URINE 9.7 % (.); ALPHA-2-GLOBULIN URINE 8.8 % (.); BETA GLOBULIN URINE 16.2 % (.); GAMMA GLOBULIN URINE 22.5 % (.); TOTAL PROTEIN RANDOM URINE 623.5 mg/dL (Not Estab.)
[2016-12-15 18:57] VITALS: BP 126/75
[2016-12-15 19:02] VITALS: BP 126/75
[2016-12-16 13:12] LABS: ANTI-NUCLEAR ANTIBODIES DIRECT Negative (Negative)
== END 2016-12-15 19:00 | disposition home or self-care (01) | DRG 470 ==
LOC: ER 14:04 → 6WST 17:20 → ENRESERV 19:53
PROVIDERS: ADMIT Internal Medicine; ATTEND Internal Medicine
PROC: 0TB13ZX Excision of Left Kidney, Percutaneous Approach, Diagnostic (ICD-10-PCS; principal; 2016-12-14)
DX: I12.0 Hypertensive chronic kidney disease with stage 5 chronic kidney disease or end stage renal disease (principal); E43 Unspecified severe protein-calorie malnutrition; N18.6 End stage renal disease; E11.22 Type 2 diabetes mellitus with diabetic chronic kidney disease; E83.52 Hypercalcemia; D64.9 Anemia, unspecified; E88.09 Other disorders of plasma-protein metabolism, not elsewhere classified; Z79.899 Other long term (current) drug therapy; Z99.2 Dependence on renal dialysis
CPT/HCPCS: 36415; 71010; 71250; 74176; 76942; 80048; 80053; 80061; 81001; 82550; 82962; 83036; 84155; 84156; 84165; 84166; 84443; 84484; 85014; 85018; 85025; 85610; 85730; 86038; 88305; 88346; 88348; 93005; 93970; 99285; J0885; J1815; J2597; J3010; J3490

== ENCOUNTER 2017-01-18 10:21 | Emergency (ER) | payer OTHER, MEDICAID ==
[~2017-01-18] VITALS: Ht 180.3 cm; Wt 91.0 kg
[~2017-01-18 10:21] MED LIST changes: +FERR325T6 PO; -LABE100T PO; +LOSA100T14 PO; +NEPVIT PO
[2017-01-18 10:22] VITALS: BP 148/68
[2017-01-18 13:48] LABS: BASOPHILS % 1.2 % (0.0-2.0); EOSINOPHILS % 3.1 % (0.0-5.0); HEMATOCRIT. 27.4 % (42.0-52.0); HEMOGLOBIN. 9.6 g/dL (14.0-18.0); LYMPHOCYTES % 17.5 % (20.0-50.0); MEAN CORPUSCULAR HEMOGLOBIN 28.6 pg (28.0-32.0); MEAN CORPUSCULAR VOLUME 81.7 fL (80.0-94.0); MEAN PLATELET VOLUME 8.1 fl (7.4-10.4); MONOCYTES % 6.3 % (2.0-8.0); NEUTROPHILS % 71.9 % (40.0-76.0); PLATELET 190 x1000/uL (130-400); RED BLOOD CELL COUNT 3.35 mill/uL (4.7-6.1); RED CELL DISTRIBUTION WIDTH 15.7 % (11.6-14.6)
[2017-01-18 13:53] LABS: CHLORIDE 108 mEq/L (98-107)
[2017-01-18 13:56] LABS: PROTHROMBIN TIME 10.5 sec (9.4-11.6)
[2017-01-18 14:01] LABS: CARBON DIOXIDE 28 mEq/L (21-32)
== END 2017-01-18 16:21 | disposition home or self-care (01) ==
LOC: ER 10:33
DX: Z46.6 Encounter for fitting and adjustment of urinary device (principal); I12.0 Hypertensive chronic kidney disease with stage 5 chronic kidney disease or end stage renal disease; E09.22 Drug or chemical induced diabetes mellitus with diabetic chronic kidney disease; N18.6 End stage renal disease; Z99.2 Dependence on renal dialysis
CPT/HCPCS: 36415; 36569; 36589; 80053; 85025; 85610; 87070; 87205; 99285; C1725; Z7610